=== PATIENT | male | born 1965 | race Caucasian/White ===

== ENCOUNTER → 2016-11-16 | Outpatient (CLI) | payer BC | LOC: ZCOL.LAB 16:50 | DX: K21.9 Gastro-esophageal reflux disease without esophagitis (principal) ==

== ENCOUNTER 2017-07-10 07:30 | Outpatient (RCR) | payer OTHER | END 2017-08-23 10:23 | disposition home or self-care (01) | LOC: WSPT 07:30 | DX: M75.111 Incomplete rotator cuff tear or rupture of right shoulder, not specified as traumatic (principal); M25.811 Other specified joint disorders, right shoulder ==

== ENCOUNTER 2017-10-17 00:19 | Emergency (ER) | payer BC ==
[~2017-10-17] VITALS: Ht 177.8 cm; Wt 104.5 kg
[2017-10-17] MEDS ORDERED: LEVAQUIN 5500 MG/TA1 PO ×2 (01:27→01:49)
[2017-10-17 01:50] VITALS: BP 145/70; PULSE 88; TEMP 101
== END 2017-10-17 01:56 | disposition home or self-care (01) ==
LOC: COL.ER 00:19
DX: J18.1 Lobar pneumonia, unspecified organism (principal)
CPT/HCPCS: A9284

== ENCOUNTER → 2017-12-02 | Outpatient (CLI) | payer BC ==
[~2017-12-02] MED LIST: LEVAQUIN 5500 MG/TA1 PO
== END ==
LOC: COL.LAB 17:04
DX: Z01.89 Encounter for other specified special examinations (principal)

== ENCOUNTER → 2018-01-01 | Outpatient (RCR) | payer OTHER | END | disposition home or self-care (01) | LOC: WSPT | DX: Z09 Encounter for follow-up examination after completed treatment for conditions other than malignant neoplasm (principal); M25.511 Pain in right shoulder ==

== ENCOUNTER 2018-01-24 13:15 | Outpatient (RCR) | payer OTHER | END 2018-01-31 09:06 | disposition home or self-care (01) | LOC: WSPT 13:15 | DX: Z47.89 Encounter for other orthopedic aftercare (principal) ==

== ENCOUNTER 2019-09-21 08:04 | Emergency (ER) | payer BC ==
[~2019-09-21] VITALS: Ht 177.8 cm; Wt 100.9 kg
[2019-09-21 08:12] VITALS: BP 128/81
[2019-09-21] MEDS ORDERED: NORCO 325 MG-51 TAB PO (09:01)
[2019-09-21 09:15] VITALS: PULSE 69; TEMP 98
== END 2019-09-21 09:15 | disposition home or self-care (01) ==
LOC: COL.ER 08:04
DX: S49.92XA Unspecified injury of left shoulder and upper arm, initial encounter (principal); L02.414 Cutaneous abscess of left upper limb; K21.9 Gastro-esophageal reflux disease without esophagitis; Z86.73 Personal history of transient ischemic attack (TIA), and cerebral infarction without residual deficits; Z79.82 Long term (current) use of aspirin; W00.0XXA Fall on same level due to ice and snow, initial encounter; Y92.009 Unspecified place in unspecified non-institutional (private) residence as the place of occurrence of the external cause

== ENCOUNTER 2019-10-17 12:50 | Outpatient (RCR) | payer OTHER ==
[~2019-10-17 12:50] MED LIST changes: +NORCO 325 MG-51 TAB PO
== END 2019-12-04 14:17 | disposition home or self-care (01) ==
LOC: WSPT 12:50
DX: Z96.612 Presence of left artificial shoulder joint (principal)

== ENCOUNTER 2020-01-22 15:30 | Outpatient (RCR) | payer OTHER | END 2020-01-23 | disposition home or self-care (01) | LOC: WSPT | DX: Z98.890 Other specified postprocedural states (principal) ==

== ENCOUNTER 2020-01-31 15:30 | Outpatient (RCR) | payer OTHER | END 2020-03-16 14:54 | disposition home or self-care (01) | LOC: WSPT 15:30 | DX: M75.102 Unspecified rotator cuff tear or rupture of left shoulder, not specified as traumatic (principal); Z98.890 Other specified postprocedural states ==

== ENCOUNTER 2020-10-24 11:00 | Emergency (ER) | payer OTHER ==
[~2020-10-24] VITALS: Ht 177.8 cm; Wt 102.3 kg
[2020-10-24 11:05] VITALS: TEMP 97.5
[2020-10-24] MEDS ORDERED: AMOXICILLIN 8751 TAB PO ×2 (12:13)
[2020-10-24 12:18] LABS: ALBUMIN 4.3 gm/dL (3.5-5.0); BILIRUBIN,TOTAL 0.9 mg/dL (0.0-1.0); CALCIUM 9.5 mg/dL (8.4-10.2); CREATININE, serum 1.09 (0.66-1.25); POTASSIUM 4.8 mmol/L (3.4-5.0); TOTAL PROTEIN 6.9 gm/dL (6.4-8.2)
[2020-10-24 12:37] LABS: BASO # 0.1 (0.0-0.2); EOS # 0.1 (0.0-0.7); EOS % 1.6 % (0-4.0); GRAN # 6.4 (1.4-6.5); GRAN % 78.8 % (42.2-75.2); HEMATOCRIT 45.1 % (42.0-52.0); HEMOGLOBIN 14.7 g/dl (13.5-18.0); LYMPH # 0.9 (1.2-3.4); LYMPH % 10.7 % (20.0-51.0); MEAN CELL VOLUME 97 fl (80.0-100.0); MEAN CORPUSCULAR HEMOGLOBIN 32 pg (27.0-31.0); MEAN CORPUSCULAR HGB CONC 33 g/dl (33.0-37.0); MEAN PLATELET VOLUME 9.8 fl (7.4-10.4); MONO # 0.6 (0.1-0.6); MONO % 6.9 % (1.7-9.3); PLATELET COUNT 248 K/mm3 (130-400); RED BLOOD COUNT 4.63 M/mm3 (4.20-5.60); REDCELL DISTRIBUTION WIDTH-CV 12.7 % (11.5-14.5)
[2020-10-24] MEDS ORDERED: NORCO 325 MG-51 TAB PO (13:22)
[2020-10-24 14:15] VITALS: BP 137/82; PULSE 72
== END 2020-10-24 14:15 | disposition home or self-care (01) ==
LOC: COL.ER 11:00
PROVIDERS: Physician Assistant
DX: S61.211A Laceration without foreign body of left index finger without damage to nail, initial encounter (principal); S61.217A Laceration without foreign body of left little finger without damage to nail, initial encounter; S61.213A Laceration without foreign body of left middle finger without damage to nail, initial encounter; W29.8XXA Contact with other powered hand tools and household machinery, initial encounter
CPT/HCPCS: J0690; J2270; J7030